=== PATIENT | female | born 1980 | race Caucasian/White ===

== ENCOUNTER 2020-04-18 18:14 | Emergency (ER) | payer BC ==
--- NOTE | 2020-04-18 18:56 | EDM.PDOC ---
ED HPI GENERAL MEDICAL PROBLEM - General Chief Complaint: Laceration Stated Complaint: laceration Time Seen by Provider: 04/18/20 18:15 Source of Information: Reports: Patient History Limitations: Reports: No Limitations - History of Present Illness INITIAL COMMENTS - FREE TEXT/NARRATIVE: Laceration to left index finger Tetanus UTD Onset: Today, Sudden Duration: Minutes: Location: Reports: Upper Extremity, Left Context: Reports: Trauma - Related Data Allergies Allergy/AdvReac Type Severity Reaction Status Date / Time amoxicillin Allergy Hives Verified 04/18/20 18:29 sulfamethoxazole Allergy Hives Verified 04/18/20 18:29 [From Bactrim] trimethoprim [From Bactrim] Allergy Hives Verified 04/18/20 18:29 Home Meds: Home Meds Multivitamins [Tab-A-Christiano] 1 tab PO DAILY 04/18/20 [History] ED ROS GENERAL - Review of Systems Review Of Systems: See Below Skin: Reports: Other (Laceration to lateral left index finger) ED EXAM, SKIN/RASH Exam: See Below Exam Limited By: No Limitations Skin: Other (Lateral left index finger with 3 cm longitudinal laceration FROM Neurovascular intact) ED SKIN PROCEDURES - Laceration/Wound Repair Left Digit - 5th (Baby) Appearance: Superficial Distal NVT: Neuro & Vascular Intact, No Tendon Injury Anesthetic Type: Local Local Anesthesia - Lidocaine (Xylocaine): 1% Plain Local Anesthetic Volume: 3cc Skin Prep: Chlorhexidine (Hibiciens) Exploration/Debridement/Repair: Wound Explored Closed with: Sutures Lac/Wound length In cm: 3 Suture Size: 4-0 # of Sutures: 5 Sterile Dressing Applied: Nurse Tetanus Status Addressed: Yes Complications: No Course - Orders/Labs/Meds Meds: Medications Discontinued Medications Generic Name Dose Route Start Last Admin Trade Name Freq PRN Reason Stop Dose Admin Lidocaine HCl 5 ml 04/18/20 18:30 04/18/20 18:36 Xylocaine-Mpf 1% INJECT 04/18/20 18:31 5 ml ONETIME ONE Administration Departure - Departure Time of Disposition: 19:00 Disposition: Home, Self-Care 01 Clinical Impression: Laceration of finger of left hand Qualifiers: Encounter type: initial encounter Finger: little finger Damage to nail status: without damage Foreign body presence: without foreign body Qualified Code(s): S61.217A - Laceration without foreign body of left little finger without damage to nail, initial encounter - Discharge Information *PRESCRIPTION DRUG MONITORING PROGRAM REVIEWED*: Not Applicable *COPY OF PRESCRIPTION DRUG MONITORING REPORT IN PATIENT [place]ILLO: Not Applicable Instructions: Laceration Care, Adult Referrals: Kala Montaño PA [Primary Care Provider] - Additional Instructions: Keep wound clean Sutures out in 10-14 days
== END 2020-04-18 19:15 | disposition home or self-care (01) ==
LOC: LL.ED 18:14
DX: S61.211A Laceration without foreign body of left index finger without damage to nail, initial encounter (principal); Z88.1 Allergy status to other antibiotic agents; Z88.2 Allergy status to sulfonamides; W26.0XXA Contact with knife, initial encounter; Y92.009 Unspecified place in unspecified non-institutional (private) residence as the place of occurrence of the external cause
CPT/HCPCS: 12002; 99282; J2001